=== PATIENT | female | born 1975 | race Two or more races ===

== ENCOUNTER 2022-12-18 06:15 | Inpatient (IN) | payer MEDICAID ==
[2022-12-15 14:19] LABS: Basophils # (auto) 0.1 10 ^3/uL (0-0.2); Basophils % (auto) 1.3 % (0.0-2.0); Eosinophils # (auto) 0.2 10 ^3/uL (0-0.8); Eosinophils % (auto) 2.1 % (0.0-7.0); Hematocrit 42.4 % (36.0-46.0); Hemoglobin 14.4 g/dL (12.2-16.2); Lymphocytes # (auto) 2.2 10 ^3/uL (0.4-5.4); Lymphocytes % (auto) 20.4 % (10.0-50.0); Mean Corpuscular Hemoglobin 30.1 pg (28.0-32.0); Mean Corpuscular Hgb Conc. 33.9 g/dL (32.0-36.0); Mean Corpuscular Volume 88.8 fL (80.0-100.0); Monocytes # (auto) 0.8 10 ^3/uL (0-1.3); Monocytes % (auto) 7.5 % (0.0-12.0); Neutrophils # (auto) 7.5 10 ^3/uL (1.6-8.6); Neutrophils % (auto) 68.7 % (37.0-80.0); Nucleated Red Blood Cells % 0.1 %; Red Blood Cells 4.77 10^6/uL (4.0-5.20); Red Cell Distribution Width 13.8 % (11.8-14.3)
[2022-12-15 14:24] LABS: Urine Bacteria FEW /hpf (None Seen); Urine Blood Negative /uL (Negative); Urine WBC 1 /hpf (0 - 5)
[2022-12-15 14:36] LABS: INR 0.97 (0.9-1.15); Partial Thromboplastin Time 27.4 sec (24.6-33.4)
[2022-12-15 15:29] LABS: Calcium 9.1 mg/dL (8.5-10.1); Potassium 4.3 mmol/L (3.5-5.1)
[2022-12-15 15:45] LABS: Albumin 3.6 g/dL (3.4-5.0); BUN/Creatinine Ratio 18.8 (10.0-20.0); Bilirubin, Total 0.2 mg/dL (0.2-1.0); Total Protein 7.6 g/dL (6.4-8.2)
[~2022-12-18] VITALS: Ht 163.8 cm; Wt 101.3 kg
[~2022-12-18 06:15] MED LIST: MONT-8 OR
[2022-12-18] MEDS ORDERED: ceFAZolin 1GM/50ML 100 ML IV ONE (06:33)
[2022-12-18] MEDS ORDERED: PROPOFOL 10 MG/ML 20 ML IV ONE ×2 (07:08→07:41)
[2022-12-18] MEDS ORDERED: LIDOCAINE 2% (LOCAL ANESTH.) PF 5ml SDV ONE (07:12)
[2022-12-18] MEDS ORDERED: BUPIVACAINE 0.25% INJ 50ML VIAL ONE (07:17)
[2022-12-18] MEDS ORDERED: LIDOCAINE W/ EPINEPHRINE 1% 20ML VIAL ONE (07:17)
[2022-12-18] MEDS ORDERED: LIDOCAINE 1% (LOCAL ANESTH.) PF 5ml SDV ONE (07:18)
[2022-12-18] MEDS ORDERED: DexAMETHasone SOD PHOS 10MG/1ML VIAL INJ ONE (07:38)
[2022-12-18] MEDS ORDERED: GLYCOPYRROLATE 0.2 MG/ML 1ML VIAL ONE (07:38)
[2022-12-18] MEDS ORDERED: KETOROLAC TROMETH 30 MG/ML 1ML VIAL ONE (07:38)
[2022-12-18] MEDS ORDERED: ONDANSETRON HCL 4 MG/2 ML VIAL ONE (07:38)
[2022-12-18] MEDS ORDERED: ESMOLOL HCL 10 ML IV ONE (07:54)
[2022-12-18] MEDS ORDERED: fentaNYL CITRATE 100 MCG/2 ML VL ONE (08:36)
[2022-12-18] MEDS ORDERED: HYDR-4902 PO ×3 (09:01→17:05)
[2022-12-18] MEDS ORDERED: AUG875T PO ×3 (09:01→17:05)
[2022-12-18] MEDS ORDERED: MORPHINE SULFATE INJ 2 MG/ml SYRG IV PRN (09:15)
[2022-12-18] MEDS ORDERED: NALOXONE HCL 0.4 MG/ML VIAL IV PRN (09:15)
[2022-12-18] MEDS ORDERED: FLUMAZENIL 0.1 MG/ML INJ 10ML MDV IV PRN (09:15)
[2022-12-18] MEDS ORDERED: ONDANSETRON HCL 4 MG/2 ML VIAL IV PRN ×2 (09:15→11:30)
[2022-12-18] MEDS ORDERED: ePHEDrine SULFATE 50 MG/ML AMP IV PRN (09:15)
[2022-12-18] MEDS ORDERED: hydrALAZINE HCL 20 MG/ML VL IV PRN (09:15)
[2022-12-18] MEDS ORDERED: LABETALOL HCL 5 MG/ML 4ML SYRINGE IV PRN (09:15)
[2022-12-18] MEDS ORDERED: fentaNYL CITRATE 100 MCG/2 ML VL IV PRN (09:15)
[2022-12-18] MEDS ORDERED: HYDROmorphone HCL 2 MG/ML VL/or syr IV PRN (09:15)
[2022-12-18] MEDS ORDERED: NITROGLYCERIN 0.4 MG SL TAB SL PRN (09:15)
[2022-12-18] MEDS ORDERED: KETOROLAC TROMETH 30 MG/ML 1ML VIAL IV ONE (10:00)
[2022-12-18] MEDS ORDERED: diphenhdrAMINE HCL 50 MG/1 ML VL IV ONE (10:00)
[2022-12-18] MEDS ORDERED: MONTELUKAST SODIUM 10 MG TAB PO ONE (10:00)
[2022-12-18 11:30] VITALS: BP 114/59
[2022-12-18] MEDS ORDERED: NICOTINE 21MG/24 HR TOPICAL PATCH TD ONE (11:30)
[2022-12-18] MEDS ORDERED: ALBUTEROL SULF 2.5 MG/0.5ML(0.5%) NEB SOLN NEB PRN (11:30)
[2022-12-18 11:53] VITALS: BP 114/59
[2022-12-18] MEDS ORDERED: AZEL0.1S (13:04)
[2022-12-18] MEDS ORDERED: CETI1TAB68 PO (13:04)
[2022-12-18] MEDS ORDERED: CETI10TA2 PO (13:04)
[2022-12-18] MEDS ORDERED: PANT1INJ3 IV (13:04)
[2022-12-18] MEDS ORDERED: ATOR10TA52 PO (13:04)
[2022-12-18 14:05] VITALS: BP 114/59
[2022-12-18 16:00] VITALS: BP 146/69
[2022-12-18] MEDS: oxyCODONE HCL 5MG TAB PO PRN ×2 (17:42→21:53)
[2022-12-18 22:00] VITALS: BP 119/95
[2022-12-18] MEDS ORDERED: MONTELUKAST SODIUM 10 MG TAB PO SCH (22:00)
[2022-12-19] MEDS: oxyCODONE HCL 5MG TAB PO PRN ×3 (02:18→11:07)
[2022-12-19 05:00] VITALS: BP 103/49
[2022-12-19 06:12] LABS: Basophils # (auto) 0 10 ^3/uL (0-0.2); Basophils % (auto) 0.1 % (0.0-2.0); Eosinophils # (auto) 0 10 ^3/uL (0-0.8); Eosinophils % (auto) 0.1 % (0.0-7.0); Hematocrit 38.6 % (36.0-46.0); Lymphocytes # (auto) 1.7 10 ^3/uL (0.4-5.4); Lymphocytes % (auto) 10.3 % (10.0-50.0); Mean Corpuscular Hemoglobin 29.8 pg (28.0-32.0); Mean Corpuscular Hgb Conc. 33.8 g/dL (32.0-36.0); Mean Corpuscular Volume 88.1 fL (80.0-100.0); Monocytes # (auto) 1.2 10 ^3/uL (0-1.3); Monocytes % (auto) 7.5 % (0.0-12.0); Neutrophils # (auto) 13.6 10 ^3/uL (1.6-8.6); Red Blood Cells 4.38 10^6/uL (4.0-5.20); Red Cell Distribution Width 13.8 % (11.8-14.3); White Blood Cell 16.5 10^3/uL (4.4-10.8)
[2022-12-19 06:21] LABS: BUN/Creatinine Ratio 16.9 (10.0-20.0); Calcium 8.5 mg/dL (8.5-10.1); Potassium 3.9 mmol/L (3.5-5.1)
[2022-12-19 07:49] VITALS: BP 99/41
[2022-12-19] MEDS ORDERED: NICOTINE 21MG/24 HR TOPICAL PATCH TD SCH (10:00)
[2022-12-19 12:10] VITALS: BP 111/50
[2022-12-19 12:26] VITALS: BP 99/41
== END 2022-12-19 13:08 | disposition home health service (06) | DRG 317 ==
LOC: SUR 06:15 → OVERFLOW 09:11 → CENTRAL 12:05
PROVIDERS: ADMIT Student in an Organized Health Care Education/Training Program; ATTEND Student in an Organized Health Care Education/Training Program
PROC: 0MQR4ZZ Repair Left Ankle Bursa and Ligament, Percutaneous Endoscopic Approach (ICD-10-PCS; principal; 2022-12-18 07:16)
DX: S93.432A Sprain of tibiofibular ligament of left ankle, initial encounter (principal); E66.01 Morbid (severe) obesity due to excess calories; F17.210 Nicotine dependence, cigarettes, uncomplicated; J44.9 Chronic obstructive pulmonary disease, unspecified; W18.39XA Other fall on same level, initial encounter; M25.372 Other instability, left ankle; Z88.5 Allergy status to narcotic agent; Z68.37 Body mass index [BMI] 37.0-37.9, adult; Z91.040 Latex allergy status; Y93.89 Activity, other specified; Y92.89 Other specified places as the place of occurrence of the external cause; Y99.8 Other external cause status
CPT/HCPCS: 36415; 73600; 80048; 80053; 81001; 84702; 85025; 85610; 85730; G0378; J0690; J1100; J1885; J2001; J2405; J2704; J3490

== ENCOUNTER 2025-02-18 16:34 | Emergency (ER) | payer MEDICAID, SELFPAY ==
[~2025-02-18] VITALS: Ht 162.6 cm; Wt 95.0 kg
[~2025-02-18 16:34] MED LIST changes: +ATOR10TA52 PO; +AUG875T PO; +AZEL0.1S; +CETI10TA2 PO; +HYDR-4902 PO; +PANT1INJ3 IV
--- NOTE | 2025-02-18 18:52 | DVH ---
CLINICAL INDICATION: RIGHT SHOULDER PX TECHNIQUE: 3 radiographic views of the right shoulder were obtained. Comparison: None FINDINGS/IMPRESSION: Acromioclavicular joint normal alignment. No dislocation of the humerus. There is a small punctate ca lcification in the soft tissues adjacent to the humeral head consistent with calcified tendinitis. Consider MRI for further evaluation
--- NOTE | 2025-02-18 19:29 | ED.PDOC ---
Back pain HPI HPI Comments 50-year-old female presents to the ED chief complaint right shoulder pain x1 day. Patient reports no known injury. Reports stiffness and decreased range of motion sharp pain in front of shoulder nonradiating describes as sharp 8/10 on pain scale. Denies numbness or weakness. Chief Complaint: Upper Extremity Time Seen by MD: 18:06 Reviewed Notes: Nurses Notes, Medications, Allergies Allergies: Coded Allergies: Latex (Verified Allergy, Unknown, 12/18/22) Codeine (Verified Adverse Reaction, Intermediate, SOB, 12/16/22) Home Meds Active Scripts Hydrocodone-Acetaminophen (Hydrocodone Bitartrate/AC 5-325 mg) 1 Tab Tab, 1 TAB PO Q8HR for 7 Days, #21 TAB Prov:GABRIELA ARNDT DPM 12/18/22 Amoxicillin & Pot Clavulanate (AUGMENTIN TABLET) 875 Mg Tb, 875 MG PO BID for 10 Days, #20 TAB Prov:GABRIELA ARNDT DPM 12/18/22 Reported Medications Pantoprazole Sodium (PANTOPRAZOLE SODIUM) 40 Mg Inj, 40 MG IV, INJ 12/18/22 Atorvastatin Calcium (ATORVASTATIN CALCIUM) 10 Mg Tab, 10 MG PO DAILY, TAB 12/18/22 Cetirizine Hcl (Kls Aller-Nakia) 10 Mg Tab, 10 MG PO, TAB 12/18/22 Azelastine Hcl (Azelastine Hcl) 0.1 % Spr, 2 SPRAY NA BID, #90 ML 3 Refills 12/18/22 Montelukast Sodium (MONTELUKAST SODIUM) 10 Mg Tab, 10 MG OR DAILY, TAB 12/16/22 Information Source: Patient Mode of Arrival: Ambulatory Past Medical History PAST MEDICAL HISTORY: Denies Surgical History: Denies all surgeries ACADEMIC SPECIALIST History: No Pertinent ACADEMIC SPECIALIST History Family History Family History: Reviewed,noncontributory to illness Social History Smoker: Non-Smoker Alcohol: Denies ETOH Use Drugs: Denies Drug Use Musculoskeletal: reports: joint pain, muscle pain All Other Systems: Reviewed and Negative Physical Exam General Appearance: No Apparent Distress, Normal HEENT: Pharynx Normal Neck: Full Range of Motion, Non-Tender Respiratory: Lungs Clear, No Respiratory Distress, Normal Breath Sounds Cardiovascular: No Murmur, Normal Peripheral Pulses, Regular Rate/Rhythm Breast Exam: Deferred Gastrointestinal: Non Tender, Soft Genitalia: Deferred Pelvic: Deferred Rectal: Deferred Extremities: Normal capillary refill, Normal range of motion Musculoskeletal : Location: Right Extremity Location: Shoulder (TENDERNESS PALPATED OVER ANTERIOR SHOULDER STRENGTH SENSORY MOTION INTACT POSITIVE RADIAL PULSE) Apperance: Normal Neurologic: Alert, No Motor Deficits, Normal Affect, Normal Mood, No Sensory Deficits Cerebellar Function: Normal Reflexes: NOT DONE Skin: Dry, Normal Color, Warm Lymphatic: No Adenopathy Was a procedure done? Was a procedure done?: No Back Pain Differential Dx Differential Diagnosis: Fracture, Musculoskeletal Pain, Strain X-Ray, Labs, Meds, VS Vital Signs Date Time Temp Pulse Resp B/P (MAP) Pulse Ox O2 Delivery O2 Flow Rate FiO2 02/18/25 16:39 98.7 98 16 101/60 97 98.7 X-Ray, Labs, Meds, VS Comment Acromioclavicular joint normal alignment. No dislocation of the humerus. There is a small punctate calcification in the soft tissues adjacent to the humeral head consistent with calcified tendinitis. Consider MRI for further evaluation. RIGHT SHOULDER X-RAY REVIEWED, RECOMMEND OUTPATIENT MRI IF PAIN CONTINUES. PATIENT WAS GIVEN TORADOL AND NORCO REQUESTING DISCHARGE AT THIS TIME. SHE DOES NOTE IMPROVEMENT IN PAIN. PATIENT PLACED IN SLING FOR COMFORT. HE IS TO FOLLOW UP WITH HER PCP IN 2-3 DAYS AND IF NO IMPROVEMENT CONSIDER MRI. ADVISED ON ER RETURN PRECAUTIONS PATIENT INDICATES UNDERSTANDING AGREES WITH DISCHARGE PLAN OF CARE. Time of 1ST Reevaluation: 18:30 Reevaluation 1ST: Unchanged Time of 2ND Reevaluation: 19:31 Reevaluation 2ND: Improved Patient Education/Counseling: Diagnosis, Treatment, Prognosis, Need For Follow Up Family Education/Counseling: Diagnosis, Treatment, Prognosis, Need For Follow Up SEPSIS Sepsis Screen Date sepsis recognized/suspect: Feb 18, 2025 Time Sepsis recognized/suspect: 1642 Recent Procedure: No On Antibiotic Therapy: No Respiratory Rate >20: No Heart Rate >90: Yes Temp<36 C (96.8 F) or >38.3 C: No SBP <90 or MAP <65 mmHG: No New Acute Mental Status Change: No Is the patient on CPAP, BIPAP,: No Physician Orders R Shoulder 2+ View Xray (02/18/25 18:19) Apply Sling (02/18/25 19:29) Ketorolac Injection (Toradol Injection) (02/18/25 19:30) Hydrocodone-Acet 5/325mg Tab ([place] 5/32 (02/18/25 19:30) Vital Signs Date Time Temp Pulse Resp B/P (MAP) Pulse Ox O2 Delivery O2 Flow Rate FiO2 02/18/25 16:39 98.7 98 16 101/60 97 98.7 Departure 1 Departure Time of Disposition: 19:31 Impression: Primary Impression: Calcifying tendinitis of shoulder Qualified Codes: M75.31 - Calcific tendinitis of right shoulder Disposition: HOME / SELF CARE / HOMELESS Condition: Stable e-Prescriptions Tizanidine Hydrochloride (Tizanidine Hcl) 4 Mg Tab 4 MG PO BID PRN for 6 Days, #12 TAB Prov: NILDA BYERS 02/18/25 Methylprednisolone (Medrol Dosepak) 4 Mg Joseph 4 MG PO UD for 6 Days, #21 TAB UAD Prov: NILDA BYERS 02/18/25 Discharged With: Significant Other Critical Care Note Critical Care Time?: No Stability Stability form required: No NILDA BYERS Feb 18, 2025 19:29
[2025-02-18] MEDS ORDERED: TIZA-142 PO (19:34)
[2025-02-18] MEDS ORDERED: METH4PAK PO (19:34)
[2025-02-18] MEDS: HYDROcodone-ACET 5/325MG TAB PO ONE (19:38)
[2025-02-18] MEDS: KETOROLAC TROMETH 60MG/2ML VIAL IM ONE (19:39)
[2025-02-18 19:47] VITALS: BP 108/73; PULSE 79; RESP 18; TEMP 99.1; O2SAT 96
== END 2025-02-18 19:50 | disposition home or self-care (01) ==
LOC: ER 16:34
DX: M75.31 Calcific tendinitis of right shoulder (principal); Z79.899 Other long term (current) drug therapy; Z88.5 Allergy status to narcotic agent
CPT/HCPCS: 29105; 73030; 96372; 99283; J1885